=== PATIENT | female | born 1950 | race Caucasian/White ===

== ENCOUNTER 2023-12-13 06:09 | Day surgery (SDC) | payer OTHER ==
[2023-12-07 16:00] VITALS: BMI 22.3
[2023-12-13] MEDS ORDERED: LIDOCAINE 1%/EPI 1:100000 (20 ML MULTI DOSE VIAL) ONE (07:17)
[2023-12-13] MEDS ORDERED: TETRACAINE 0.5% OPHTH SOLN 2 ML BOTTLE ONE (07:17)
[2023-12-13] MEDS ORDERED: ERYTHROMYCIN 0.5% OPHTHALMIC OINTMENT 3.5 GM TUBE ONE ×2 (07:17→11:31)
[2023-12-13] MEDS ORDERED: POVIDONE-IODINE 5% OPHTHALMIC PREP 30 ML SOLUTION ONE (07:17)
[2023-12-13] MEDS ORDERED: ceFAZolin SODIUM 1 GM VIAL ONE (07:17)
[2023-12-13] MEDS ORDERED: ONDANSETRON 4 MG/2 ML VIAL ONE (07:18)
[2023-12-13] MEDS ORDERED: LIDOCAINE HCL/PF 2% SDV 5ML VIAL ONE (07:18)
[2023-12-13] MEDS ORDERED: PROPOFOL 80 ML ONE (07:18)
[2023-12-13] MEDS ORDERED: SUCCINYLCHOLINE CHLORIDE 200 MG/10 ML SYRINGE ONE (07:18)
[2023-12-13] MEDS ORDERED: MIDAZOLAM HCL 2 MG/2 ML SINGLE DOSE VIAL ONE (07:19)
[2023-12-13] MEDS ORDERED: PROPOFOL 40 ML ONE (09:35)
[2023-12-13] MEDS ORDERED: ACETAMINOPHEN INJECTION 100 ML IVPB ONE (09:44)
[2023-12-13] MEDS ORDERED: oxyCODONE HCL 5 MG TABLET PO PRN (11:44)
[2023-12-13] MEDS ORDERED: ONDANSETRON 4 MG/2 ML VIAL IVPUSH PRN (11:44)
[2023-12-13] MEDS ORDERED: LACTATED RINGERS SOLUTION 1,000 ML IV SCH (11:45)
[2023-12-13 14:02] VITALS: BP 126/66; PULSE 71; RESP 19; TEMP 97.6
== END 2023-12-13 13:55 | disposition home or self-care (01) ==
LOC: FASU 06:09
PROVIDERS: ATTEND Ophthalmology
PROC: 08SP0ZZ Reposition Left Upper Eyelid, Open Approach (ICD-10-PCS; principal; 2023-12-13 08:15)
PROC: 08SN0ZZ Reposition Right Upper Eyelid, Open Approach (ICD-10-PCS; 2023-12-13 08:15)
DX: H02.423 Myogenic ptosis of bilateral eyelids (principal); H02.831 Dermatochalasis of right upper eyelid; H02.834 Dermatochalasis of left upper eyelid; H02.89 Other specified disorders of eyelid
CPT/HCPCS: 94760; J0131